=== PATIENT | female | born 1995 | race Caucasian/White ===

== ENCOUNTER 2018-01-05 19:04 | Observation (INO) ==
--- NOTE | 2018-01-05 19:33 | OB/GYN Progress Note ---
Date of Encounter: 01/05/18 Time of Encounter: 19:31 - Assessment and Plan (1) 34 weeks gestation of Status: Acute Follow-up with OB provider as scheduled labor precautions given Discharge home (2) Vaginal discharge during in third trimester Status: Acute Vaginosis panel: negative Common discomforts of reviewed Subjective - Subjective Interval history: Ms. Burks is a 22-year-old at 34 weeks gestation who presents to the unit with complaint of loss of mucous membranes. She reports last night she had copious amounts of output that was mucus in nature. She states she then smoked marijuana and went to bed. She receives her care from her family physician in [place]. She endorses good movement and denies contractions, vaginal bleeding. Antepartum ROS: new complaints, loss of fluid, movement normal, no vaginal bleeding, no contractions Objective - Exam FHR: category 1 Auscultation: bilateral: normal Abdomen: Present: normal appearance, soft, gravid Uterus: Present: normal, firm
[2018-01-05 20:16] LABS: Bacteria,Urine Moderate per hpf (None-Few); Bilirubin,Urine Negative (Negative); Blood,Urine Negative (Negative); Clarity,Urine Cloudy (Clear); Color,Urine Yellow (Yellow); Glucose,Urine (UA) Normal (Normal); Ketones,Urine Negative (Negative); Leukocyte Esterase,Urine Small (Negative); Nitrite,Urine Negative (Negative); PH,Urine 6.5 pH Units (5.0-8.0); Protein,Urine Trace mg/dL (Neg-Trace); Specific Gravity,Urine 1.021 (1.010-1.025); Squamous Epithelial Cell,Urine Many per lpf (None-Few); Urobilinogen,Urine Normal (Normal); WBC,Urine 15-30 per hpf (0-3)
[2018-01-05 20:24] LABS: Amphetamine Screen,Urine Negative ng/mL (Cutoff=1000); Barbiturate Screen,Urine Negative ng/mL (Cutoff=200); Benzodiazepines Screen,Urine Negative ng/mL (Cutoff=200); Cannabinoid Screen,Urine Positive ng/mL (Cutoff = 50); Cocaine Screen,Urine Negative ng/mL (Cutoff= 300); Opiate Screen,Urine Negative ng/mL (Cutoff=300); Phencyclidine Screen,Urine Negative ng/mL (Cutoff=25)
[2018-01-05 20:26] LABS: Hyaline Casts,Urine None Seen per lpf (None-Few); RBC,Urine 0-3 per hpf (0-3)
[2018-01-05 21:17] LABS: Gardnerella DNA Not Detected (Not Detect); Trichomonas DNA Not Detected (Not Detect)
[2018-01-05 21:18] LABS: Candida DNA Not Detected (Not Detect)
== END 2018-01-05 21:36 | disposition home or self-care (01) ==
LOC: 1NENULAB
PROVIDERS: ADMIT Advanced Practice Midwife; ATTEND Advanced Practice Midwife

== ENCOUNTER → 2018-01-18 17:15 | Observation (INO) ==
--- NOTE | 2018-01-18 15:57 | OB/GYN Progress Note ---
Date of Encounter: 01/18/18 Time of Encounter: 15:55 - Assessment and Plan (1) 36 weeks gestation of Status: Acute (2) Nausea and vomiting during Status: Acute Tolerated water and crackers, no loose stools. Discharged home with labor and when to return to triage precautions. Subjective - Subjective Interval history: 35+6 weeks gestation presents to triage with complaints of nausea vomiting and diarrhea for the last 2 days. Patient states she has had nausea with diarrhea for the last few nights, last time she was able to keep anything down was yesterday, has not tried to eat or drink anything today other than a few sips of water. care with Meena Figueroa and Mey, patient states she plans to probably delivered Radha. Reports good movement, denies contractions, vaginal bleeding or leaking of fluid Antepartum ROS: movement normal, no loss of fluid, no vaginal bleeding, no contractions Objective - Exam FHR: auscultation normal FHR comments: Baseline 140 Abdomen: Present: soft, gravid Cervical dilation: 50/ballotable
== END | disposition home or self-care (01) ==
LOC: 1NENULAB
PROVIDERS: ADMIT Advanced Practice Midwife; ATTEND Advanced Practice Midwife

== ENCOUNTER → 2018-02-07 22:05 | Observation (INO) ==
[2018-02-07 21:42] LABS: Amphetamine Screen,Urine Negative ng/mL (Cutoff=1000); Barbiturate Screen,Urine Negative ng/mL (Cutoff=200); Benzodiazepines Screen,Urine Negative ng/mL (Cutoff=200); Cannabinoid Screen,Urine Negative ng/mL (Cutoff = 50); Cocaine Screen,Urine Negative ng/mL (Cutoff= 300); Opiate Screen,Urine Negative ng/mL (Cutoff=300); Phencyclidine Screen,Urine Negative ng/mL (Cutoff=25)
--- NOTE | 2018-02-07 21:51 | Discharge Summary ---
Date of Encounter: 02/07/18 Time of Encounter: 21:50 - Discharge Diagnosis (1) 39 weeks gestation of Priority: Primary Status: Acute Comments: admitted for observation (2) Decreased movement Priority: Secondary Status: Acute Comments: Reactive nst Qualifiers: Fetus number: single or unspecified fetus Trimester: third trimester Qualified Code(s): O36.8130 - Decreased movements, third trimester, not applicable or unspecified (3) NST (non-stress test) reactive on surveillance Priority: Secondary Status: Acute Comments: FHR baseline 140 bpm moderate variability +15x15 accels no decels noted. CAt. 1 tracing - Discharge Medications Home Medications: Vit Calc,Iron,Folic [ Vitamins] 1 each PO DAILY #90 tablet 03/16 [Rx] Allergies/Adverse Reactions: 3 Allergy/AdvReac Type Severity Reaction Status Date / Time Penicillins Allergy Hives Verified 08/14/16 18:48 Data Procedures and tests throughout hospitalization: Laboratory Tests 02/07/18 21:19 Urine Opiates Screen Negative Ur Barbiturates Screen Negative Ur Phencyclidine Scrn Negative Ur Amphetamines Screen Negative U Benzodiazepines Scrn Negative Urine Cocaine Screen Negative U Marijuana (THC) Screen Negative Ur Drug Screen Interp See Below Labs on day of discharge: Labs from last 24 hours 02/07/18 21:19 Urine Opiates Screen Negative Ur Barbiturates Screen Negative Ur Phencyclidine Scrn Negative Ur Amphetamines Screen Negative U Benzodiazepines Scrn Negative Urine Cocaine Screen Negative U Marijuana (THC) Screen Negative Ur Drug Screen Interp See Below Date of admission: 02/07/18 21:03 Discharging clinician: Amparo Gómez Anticipated date of discharge: 02/07/18 - Patient Status Disposition: Home, Self-Care Condition: Good Functional capacity at discharge: independent ambulation - Discharge Instructions - Diet and Activity Activity: increase activity as tolerated Diet: regular diet 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 Patient denies contractions , LOF or VB. Patient reports movement after being placed on the monitor. NST today reactive. Time Attestation: Total time spent providing and/or coordinating discharge services: Time Spent: Less than 30 minutes Exam - Constitutional General appearance IM: A&O X 3, pleasant, answers questions appropriately - Other Additional findings: FHR 140 bpm moderate variability +15x15 accels no decels noted. CAt. 1 tracing. No contractions noted. - VTE Reasons for not Prescribing Prophylaxis: Treatment not Indicated - Low risk for VTE
== END | disposition home or self-care (01) ==
LOC: 1NENULAB
PROVIDERS: ADMIT Advanced Practice Midwife; ATTEND Advanced Practice Midwife